=== PATIENT | female | born 1965 | race Two or more races ===

== ENCOUNTER 2025-02-12 18:10 | Emergency (ER) | payer MEDICAID, OTHER ==
[~2025-02-12] VITALS: Ht 160 cm; Wt 82.0 kg
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
--- NOTE | 2025-02-12 20:22 | DVH ---
EXAM: XY CHEST TWO VIEWS ROUTINE CLINICAL HISTORY: cp TECHNIQUE: Frontal and lateral views of the chest WID: COMPARISON: None FINDINGS: Lines and tubes: None Chest: The heart size and pulmonary vasculature is within normal limits. No pleural effusion, pneumothorax, or consolidation. Linear bibasilar atelectasis. The osseous structures are grossly intact. Multilevel thoracic spondylosis. IMPRESSION: No acute cardiopulmonary abnormality.
[2025-02-12 20:35] VITALS: BP 127/75; PULSE 71; RESP 18; TEMP 98.2; O2SAT 95
[2025-02-12] MEDS: ONDANSETRON HCL 4 MG/2 ML VIAL IV ONE (20:49)
[2025-02-12] MEDS: KETOROLAC TROMETH 30 MG/ML 1ML VIAL IV ONE (20:50)
--- NOTE | 2025-02-13 07:34 | ECG ---
[facility] Test Date: 2025-02-12 Test Time: 18:18:05 Pat Name: HARPREET GANDHI Department: ED Room: Gender: F C.O.D. Biller: jossie : 1965 Requested By: DERICK WELCH Order Number: [id number] Reading MD: Carlos Blankenship Measurements Intervals [place] Rate: 101 P: 54 NM: 137 QRS: -13 QRSD: 105 T: 19 QT: 356 QTc: 462 Interpretive Statements Sinus tachycardia Abnormal R-wave progression, early transition Borderline T abnormalities, inferior leads Baseline wander in lead(s) II,III,aVF,V5,V6 Electronically Signed On 02-13-2025 9:29:45 PDT by Carlos Blankenship Please click the below link to view image of tracing.
== END 2025-02-12 20:53 | disposition home or self-care (01) ==
LOC: EDBD 18:10 → ER 18:16 → EDSEX 18:16 → ER 20:53
DX: S20.219A Contusion of unspecified front wall of thorax, initial encounter (principal); I10 Essential (primary) hypertension; V89.2XXA Person injured in unspecified motor-vehicle accident, traffic, initial encounter; Y93.89 Activity, other specified; Y92.89 Other specified places as the place of occurrence of the external cause; Y99.8 Other external cause status
CPT/HCPCS: 71046; 93005; 96374; 96375; 99284; J1885; J2405